=== PATIENT | female | born 1980 | race Caucasian/White ===

== ENCOUNTER 2018-02-15 12:30 | Emergency (ER) | payer OTHER ==
[~2018-02-15] VITALS: Ht 168.9 cm; Wt 102.6 kg
[~2018-02-15 12:30] MED LIST: CLEOCIN300 MG PO; DENIES CURRENT MEDS; DEPO-MEDROL80 MG/ML IM; DOXYCYC MONO100 MG OR; FLAGYL500 MG OR; FLEXERIL5 M1 PO; MAG CITRATE OR; MEDDOSEPAK PO; NAPROSYN500 MG PO; NO; NO CURRENT MEDS; PRE-NATAL OR; TESSALON200 MG PO; TRAMADOL HCL50 MG PO; ULTRAM50 M1 PO; ULTRAM50 MG OR; ZITHROMAX500 MG PO; ZOFRAN ODT4 MG OR
[2018-02-15] MEDS ORDERED: CORTISPORIN OTI10 ML AD (13:26)
[2018-02-15] MEDS ORDERED: CIPROFLOXACN750 MG PO (13:26)
[2018-02-15 13:28] VITALS: BP 136/83
== END 2018-02-15 13:31 | disposition home or self-care (01) ==
LOC: ED 12:30
DX: H60.501 Unspecified acute noninfective otitis externa, right ear (principal)

== ENCOUNTER 2018-07-18 03:29 | Emergency (ER) | payer SELFPAY ==
[~2018-07-18] VITALS: Ht 172.7 cm; Wt 102.7 kg
[~2018-07-18 03:29] MED LIST changes: +CIPROFLOXACN750 MG PO; +CORTISPORIN OTI10 ML AD
[2018-07-18] MEDS ORDERED: CLEOCIN300 MG PO (03:51)
[2018-07-18] MEDS ORDERED: LORTAB 1010 MG PO (03:51)
[2018-07-18 04:11] VITALS: BP 139/79
== END 2018-07-18 04:06 | disposition home or self-care (01) | DRG 159 ==
LOC: ED 03:29
DX: K04.7 Periapical abscess without sinus (principal); K08.89 Other specified disorders of teeth and supporting structures; R51 Headache; R68.84 Jaw pain

== ENCOUNTER 2019-01-25 13:06 | Emergency (ER) | payer OTHER ==
[~2019-01-25] VITALS: Ht 172.7 cm; Wt 89.0 kg
[~2019-01-25 13:06] MED LIST changes: +LORTAB 1010 MG PO
[2019-01-25 13:09] VITALS: BP 128/77
== END 2019-01-25 14:30 | disposition home or self-care (01) | DRG 556 ==
LOC: ED 13:06
DX: M25.511 Pain in right shoulder (principal); V49.40XA Driver injured in collision with unspecified motor vehicles in traffic accident, initial encounter

== ENCOUNTER 2023-10-30 14:17 | Emergency (ER) | payer SELFPAY ==
[~2023-10-30] VITALS: Ht 172.7 cm; Wt 122.0 kg
[2023-10-30 14:23] VITALS: BP 140/90
[2023-10-30] MEDS ORDERED: ASPIRIN 81 MG/TAB PO PRN (14:25)
[2023-10-30] MEDS ORDERED: NITROGLYCERIN 0.4 MG/TAB SL ONE (14:30)
[2023-10-30] MEDS ORDERED: ONDANSETRON HCl 4 MG/2 ML SDV IV ONE (14:30)
[2023-10-30] MEDS ORDERED: Pantoprazole Sodium 40 MG VIAL (Protonix) IV ONE (14:30)
[2023-10-30] MEDS ORDERED: MORPHINE SULFATE 4 MG/ML VIAL IV ONE (14:30)
[2023-10-30 14:59] LABS: BASO% 0.4 % (0-3); EOS% 3.6 % (0-8); IMMATURE GRANULOCYTES 0.2 % (0.0-5.0); LYMPH% 20.3 % (15-41); MEAN CORPUSCULAR HGB 22.5 pG CALC (26.0-32.0); MEAN CORPUSCULAR HGB CONC 30.8 g/dL CAL (32.0-36.0); MONO% 6.5 % (2-13); NEUT# 7.49 thou/uL (2.00-7.15); RED BLOOD COUNT 4.48 mill/uL (4.20-5.60); RED CELL DISTRI WIDTH 16.8 % (11.5-15.5)
[2023-10-30 15:01] LABS: HEMATOCRIT 32.8 % (37.0-47.0); HEMOGLOBIN 10.1 g/dl (12.0-16.0); MEAN CELL VOLUME 73.2 fL CALC (80.0-100.0)
[2023-10-30 15:01] LABS: URINE BILIRUBIN - DIPSTICK Negative (NEGATIVE); URINE BLOOD DIPSTICK Small (NEGATIVE); URINE GLUCOSE - DIPSTICK Negative (NEGATIVE); URINE KETONE Negative (NEGATIVE); URINE LEUK ESTERASE Negative (NEGATIVE); URINE NITRITE - DIPSTICK Negative (Negative); URINE PH 5.5 (4.5-8.0); URINE PROTEIN - DIPSTICK Negative (NEG-TRACE); URINE UROBILINOGEN - DIPSTICK 0.2 E.U./dL (0.2)
[2023-10-30 15:02] LABS: URINE COLOR Yellow
[2023-10-30 15:04] LABS: URINE SQUAMOUS EPITHELIAL CELL FEW EPI/hpf (0-FEW); URINE WBC 0-2 WBC/hpf (0-5)
[2023-10-30 15:06] VITALS: BP 119/68
[2023-10-30 15:17] LABS: ALBUMIN 4.3 g/dL (3.2-5.0); ALKALINE PHOSPHATASE 70 u/l (38-126); ANION GAP 9 (6-22 (CALC)); BILIRUBIN, TOTAL 0.5 mg/dL (0.02-1.3); BUN 9 mg/dL (7-17); BUN/CREATININE RATIO 13 (12-20 (CALC)); CARBON DIOXIDE 26 mmol/l (22-30); CHLORIDE 108 mmol/l (95-108); CREATININE 0.7 mg/dL (0.5-1.0); ESTIMATED GFR 110 ML/MIN (>=90 (CALC)); LIPASE 105 u/l (23-300); POTASSIUM 3.9 mmol/l (3.5-5.1); SGOT/AST 23 u/l (14-36); SODIUM 138 mmol/l (137-146)
[2023-10-30] MEDS ORDERED: ASPIRIN 81 MG/TAB PO ONE (15:40)
[2023-10-30 15:46] VITALS: BP 125/70
[2023-10-30] MEDS ORDERED: OMEPRAZOLE20 MG PO (16:55)
[2023-10-30 17:47] VITALS: BP 125/70
== END 2023-10-30 17:55 | disposition home or self-care (01) | DRG 392 ==
LOC: ED 14:17
PROVIDERS: Nurse Practitioner Family
DX: K21.9 Gastro-esophageal reflux disease without esophagitis (principal); K64.8 Other hemorrhoids; K64.4 Residual hemorrhoidal skin tags; D64.9 Anemia, unspecified; Z20.822 Contact with and (suspected) exposure to COVID-19
CPT/HCPCS: J2470; Q9967

== ENCOUNTER 2023-11-08 19:53 | Emergency (ER) | payer SELFPAY ==
[~2023-11-08] VITALS: Ht 172.7 cm; Wt 117.0 kg
[~2023-11-08 19:53] MED LIST changes: +OMEPRAZOLE20 MG PO
[2023-11-08] MEDS ORDERED: HYDROcodone POLISTIREX/CHLORPH 5 ML UDC PO ONE (20:35)
[2023-11-08] MEDS ORDERED: IPRATROPIUM-Albuterol 0.5MG-2.5MG/3 ML NEB ONE (20:35)
[2023-11-08] MEDS ORDERED: ALBUTEROL SULFATE 2.5 MG VIAL IN ONE (20:35)
[2023-11-08] MEDS ORDERED: methylPREDNISolone SODIUM SUCC 125 MG/2 ML SDV IM ONE (20:40)
[2023-11-08 21:05] LABS: BASO% 0.4 % (0-3); EOS% 7.6 % (0-8); HEMATOCRIT 32.4 % (37.0-47.0); HEMOGLOBIN 9.5 g/dl (12.0-16.0); IMMATURE GRANULOCYTES 0.2 % (0.0-5.0); LYMPH% 18.6 % (15-41); MEAN CELL VOLUME 76.8 fL CALC (80.0-100.0); MEAN CORPUSCULAR HGB 22.5 pG CALC (26.0-32.0); MEAN CORPUSCULAR HGB CONC 29.3 g/dL CAL (32.0-36.0); MONO% 6.5 % (2-13); NEUT# 6.76 thou/uL (2.00-7.15); NEUT% 66.7 % (42-76); RED BLOOD COUNT 4.22 mill/uL (4.20-5.60); RED CELL DISTRI WIDTH 16.8 % (11.5-15.5)
[2023-11-08] MEDS ORDERED: ZITHROMAX TRI-500 MG PO (22:00)
[2023-11-08] MEDS ORDERED: VENTOLIN HFA IN (22:00)
[2023-11-08] MEDS ORDERED: AZITHROMYCIN 250 MG/TAB PO ONE (22:00)
[2023-11-08] MEDS ORDERED: PREDNISONE50 MG PO (22:00)
[2023-11-08] MEDS ORDERED: predniSONE 20 MG/TAB PO ONE (22:00)
[2023-11-08 22:52] VITALS: BP 119/70
== END 2023-11-08 22:52 | disposition home or self-care (01) | DRG 203 ==
LOC: ED 19:53
PROVIDERS: Family Medicine
DX: J40 Bronchitis, not specified as acute or chronic (principal); Z20.822 Contact with and (suspected) exposure to COVID-19